=== PATIENT | male | born 1940 | race Caucasian/White ===

== ENCOUNTER 2019-04-01 09:21 | Inpatient (IN) | payer MEDICARE, MEDICAID ==
[2019-04-01] VITALS (14 sets, daily range): BP systolic 116–204; BP diastolic 62–103
[~2019-04-01] VITALS: Ht 162.6 cm; Wt 63.3 kg
--- NOTE | 2019-04-01 09:22 | NUR ---
Rec patient from [place] via flight crew. vss. Patient awake and alert. vss. No bradycardia, heart rate SR-ST with heart rate 103. BP stable. Hydralazine 20mg given by flight crew enroute for reported bp of greater than 200 systolic. Pt denying cp or sob at this time
[2019-04-01] MEDS: normal saline 1000ml 1,000 ML IV SCH ×2 (10:09→20:05)
[2019-04-01] MEDS ORDERED: atorvastatin 20mg tablet PO SCH (10:10)
[2019-04-01] MEDS ORDERED: heparin 10,000 units/1 ML INJ IV PRN (10:10)
[2019-04-01] MEDS ORDERED: heparin 10,000 units/1 ML INJ IV ONE (10:10)
[2019-04-01] MEDS ORDERED: aspirin 81mg tablet.DR PO SCH (10:10)
[2019-04-01] MEDS ORDERED: clopidogrel 75mg tablet PO SCH (10:10)
[2019-04-01] MEDS ORDERED: sodium phosphate inj. 15 MMOL in dextrose 5%-water 150 ML IV PRN (11:00)
[2019-04-01] MEDS ORDERED: magnesium Cl slow-release 64mg tablet PO PRN (11:00)
[2019-04-01] MEDS ORDERED: magnesium 2GM in 50ml NS 50 ML IV PRN (11:00)
[2019-04-01] MEDS ORDERED: Neutra Phos packet PO PRN (11:00)
[2019-04-01] MEDS ORDERED: ipratropium/albuterol 3ml nebule NEB PRN (11:00)
[2019-04-01] MEDS ORDERED: sodium phosphate inj. 30 MMOL in dextrose 5%-water 250 ML IV PRN (11:00)
[2019-04-01] MEDS ORDERED: magnesium 4gm in 100ml NS 100 ML IV PRN (11:00)
[2019-04-01] MEDS ORDERED: acetaminophen 325mg tablet PO PRN (11:00)
[2019-04-01] MEDS ORDERED: potassium Cl 20 mEq SR tablet PO PRN (11:00)
--- NOTE | 2019-04-01 12:00 | NUR ---
Heparin gtt ordered per Dr Aguilar/ Fariha Farfan. Labs being drawn now.
[2019-04-01] MEDS ORDERED: FURO-149 PO (12:10)
[2019-04-01] MEDS ORDERED: NITR0.4T51 SL (12:10)
[2019-04-01] MEDS ORDERED: CLOP75TA35 PO (12:10)
[2019-04-01] MEDS ORDERED: HYDR100T27 PO (12:10)
[2019-04-01] MEDS ORDERED: ATOR20TA PO (12:10)
[2019-04-01] MEDS ORDERED: ISOS120T13 PO ×2 (12:10→15:02)
[2019-04-01] MEDS ORDERED: CLON-529 PO (12:10)
[2019-04-01] MEDS ORDERED: ASPI-1265 PO (12:10)
[2019-04-01] MEDS ORDERED: POTA20PA40 PO (12:10)
[2019-04-01 13:03] LABS: BASOPHILS % (AUTO) 0.4 % (0-1); EOSINOPHILS % (AUTO) 0.2 % (0-6); HEMATOCRIT 45.1 % (42.0-52.0); HEMOGLOBIN 14.9 g/dl (14.0-17.9); LYMPHOCYTES # (AUTO) 0.7 X10'3 (1.1-4.8); LYMPHOCYTES % (AUTO) 5.9 % (21-51); MEAN CORPUSCULAR HEMOGLOBIN 29.5 PG (27.0-31.0); MEAN CORPUSCULAR HGB CONC 33.1 g/dL (33.0-36.5); MEAN CORPUSCULAR VOLUME 89.2 FL (78-98); MEAN PLATELET VOLUME 9.6 FL (7.4-10.4); MONOCYTES # (AUTO) 1.1 X10'3 (0-0.9); MONOCYTES % (AUTO) 8.4 % (2-12); NEUTROPHILS # (AUTO) 10.8 X10'3 (1.8-7.7); NEUTROPHILS % (AUTO) 85.1 % (42-75); PLATELET COUNT 274 X10'3 (140-440); RED BLOOD COUNT 5.06 X10'6 (4.70-6.10); RED CELL DISTRIBUTION WIDTH 14.9 % (11.5-14.5); WHITE BLOOD COUNT 12.7 X10'3 (4.5-11.0)
[2019-04-01 13:17] LABS: PARTIAL THROMBOPLASTIN TIME 50 SECONDS (22-32)
[2019-04-01 13:31] LABS: CLARITY,URINE CLOUDY (Clear); COLOR,URINE YELLOW (Yellow); GLUCOSE, URINE NEGATIVE (Neg); KETONES,URINE NEGATIVE (Neg); LEUKOCYTE ESTERASE ,URINE MODERATE (Neg); NITRITES, URINE NEGATIVE (Neg); OCCULT BLOOD,URINE MODERATE (Neg); PROTEIN,URINE 30 mg/dl (Neg); UROBILINOGEN,URINE 0.2 E.U/dL (0.2-1.0)
[2019-04-01 13:34] LABS: ALANINE AMINOTRANSFERASE 13 U/L (12-78); ALBUMIN 4.3 G/DL (3.4-5.0); ALBUMIN/GLOBULIN RATIO 0.9 (1.1-1.5); ALKALINE PHOSPHATASE 82 IU/L (46-116); ANION GAP 14 (8-16); ASPARTATE AMINO TRANSFERASE 26 U/L (10-37); BILIRUBIN,TOTAL 0.6 MG/DL (0.1-1.0); BLOOD UREA NITROGEN 40 MG/DL (7-18); CALCIUM 9.2 MG/DL (8.5-10.1); CHLORIDE 103 MMOL/L (99-107); CREATININE 1.74 MG/DL (0.60-1.10); GLUCOSE 112 MG/DL (70-104); MAGNESIUM 2.5 MG/DL (1.5-2.4); PHOSPHORUS 2.9 MG/DL (2.3-4.5); POTASSIUM 4.1 MMOL/L (3.5-5.1); SODIUM 143 MMOL/L (135-145); TOTAL CARBON DIOXIDE 25.6 MMOL/L (24-32); TOTAL PROTEIN 9.1 G/DL (6.4-8.2); eGFR 38 ML/MIN
[2019-04-01 13:37] LABS: UA COLLECTION TYPE FOLEY CATH
[2019-04-01 13:39] LABS: BACTERIA,URINE 2+ /HPF (Neg)
[2019-04-01 13:40] LABS: FINE GRANULAR CAST 0-3 /LPF (NEGATIVE); RENAL CELLS, URINE FEW /HPF; WBC CLUMPS,URINE MANY /HPF (NEGATIVE)
[2019-04-01 13:41] LABS: CELLULAR CAST 0-4 /LPF (NEGATIVE); COARSE GRANULAR CAST 0-3 /LPF (NEGATIVE); RBC,URINE 20-50 /HPF (0-2); SQUAMOUS EPITHELIAL CELL,UR FEW /LPF (FEW)
[2019-04-01 13:43] LABS: WBC,URINE TNTC /HPF (0-4)
[2019-04-01] MEDS ORDERED: nitroGLYCERIN 0.4mg SUBLingual tab SL PRN (15:00)
[2019-04-01] MEDS: heparin 25,000 UNIT/250ml bag 250 ML IV SCH ×2 (15:41→20:40)
[2019-04-01] MEDS: hydrALAZINE 25 MG tablet PO SCH (15:41)
[2019-04-01] MEDS: acetaminophen 325mg tablet PO PRN (17:16)
--- NOTE | 2019-04-01 18:25 | NUR ---
Patient in room ICU 2046. I have received report from Chana STELE and had the opportunity to ask questions and assume patient care. Patient sitting in bed, alert/oriented x4 and in no apparent distress. Vitals WNL at this time. Will continue to monitor patient.
[2019-04-01] MEDS: ondansetron/PF 4mg/2ml inj IV PRN (18:56)
--- NOTE | 2019-04-01 19:50 | NUR ---
Problems reprioritized. Patient report given, questions answered & plan of care reviewed with Andrea STEEL. Patient left floor via hospital bed in stable condition, alert/oriented x4, with all belongings and chart.
[2019-04-01] MEDS: docusate sod 100mg capsule PO SCH (20:00)
[2019-04-01] MEDS: hydrALAZINE 20mg/ml inj. IV PRN (21:16)
[2019-04-01] MEDS ORDERED: nitroGLYCERIN-Tridil 50MG/D5W 250 ML IV SCH (22:20)
[2019-04-02] VITALS (26 sets, daily range): BP systolic 139–232; BP diastolic 79–116
[2019-04-02] MEDS: hydrALAZINE 25 MG tablet PO SCH ×3 (00:06→17:50)
[2019-04-02] MEDS ORDERED: mag hydrox/Alum hydrox/simeth 30ml oral suspension PO ONE (00:25)
[2019-04-02] MEDS: ondansetron/PF 4mg/2ml inj IV PRN ×2 (02:19→08:21)
[2019-04-02 03:27] LABS: BASOPHILS # (AUTO) 0.1 X10'3 (0-0.2); EOSINOPHILS % (AUTO) 0.1 % (0-6); HEMOGLOBIN 14.7 g/dl (14.0-17.9); MEAN CORPUSCULAR HEMOGLOBIN 29.8 PG (27.0-31.0)
[2019-04-02 03:28] LABS: BASOPHILS % (AUTO) 0.9 % (0-1); HEMATOCRIT 43.6 % (42.0-52.0); LYMPHOCYTES # (AUTO) 0.9 X10'3 (1.1-4.8); LYMPHOCYTES % (AUTO) 5.4 % (21-51); MEAN CORPUSCULAR HGB CONC 33.7 g/dL (33.0-36.5); MEAN CORPUSCULAR VOLUME 88.4 FL (78-98); MEAN PLATELET VOLUME 9.4 FL (7.4-10.4); MONOCYTES % (AUTO) 6.2 % (2-12); NEUTROPHILS # (AUTO) 13.9 X10'3 (1.8-7.7); NEUTROPHILS % (AUTO) 87.4 % (42-75); RED BLOOD COUNT 4.93 X10'6 (4.70-6.10); RED CELL DISTRIBUTION WIDTH 15.1 % (11.5-14.5); WHITE BLOOD COUNT 15.9 X10'3 (4.5-11.0)
[2019-04-02 03:31] LABS: ALBUMIN 4.2 G/DL (3.4-5.0); ANION GAP 15 (8-16); BLOOD UREA NITROGEN 34 MG/DL (7-18); BUN/CREATININE RATIO 17.6 (5.4-32.0); CALCIUM 9.6 MG/DL (8.5-10.1); CHLORIDE 105 MMOL/L (99-107); CREATININE 1.93 MG/DL (0.60-1.10); GLUCOSE 161 MG/DL (70-104); MAGNESIUM 2.4 MG/DL (1.5-2.4); PHOSPHORUS 2.5 MG/DL (2.3-4.5); POTASSIUM 3.9 MMOL/L (3.5-5.1); SODIUM 144 MMOL/L (135-145); TOTAL CARBON DIOXIDE 24.4 MMOL/L (24-32); eGFR 34 ML/MIN
[2019-04-02 04:05] LABS: PLATELET COUNT 231 X10'3 (140-440)
[2019-04-02] MEDS: heparin 25,000 UNIT/250ml bag 250 ML IV SCH (04:19)
--- NOTE | 2019-04-02 05:05 | NUR ---
Rapid response was called due to patient's SBP being in 200's and Hear rate over 150's. ICU nurse came and evaluated the patient. Patient start on Nitroglycerin drip at rate of 3ml/hr (10mcg).
--- NOTE | 2019-04-02 05:09 | NUR ---
Called Adams-PIE MAKER for patient's SBP being over 180's. Ordered hydralazine 10mg IV Q6hr PRN for SBP>185.
[2019-04-02] MEDS: normal saline 1000ml 1,000 ML IV SCH (06:05)
--- NOTE | 2019-04-02 07:00 | NUR ---
pager ID: [phone] Message: [phone]- Jose Martin Evans. BP 192/99. HR 130's. Temp 100.8 AX. Vomiting all night. UA (+) poss septic? BC drawn. says he is going to . rapid response last night. on nitro/hep GTT. needs to go back to ICU please. ACCE- Sruthi Charge Nurse ext. [phone]
[2019-04-02] MEDS ORDERED: furosemide 20 MG/2 ML vial IV ONE (08:00)
[2019-04-02] MEDS ORDERED: isosorbide mononitrate 30mg tab.SR.24H PO SCH (08:00)
[2019-04-02] MEDS ORDERED: ceFAZolin 1000mg inj ONE (08:01)
[2019-04-02] MEDS ORDERED: heparin 10,000 units/1 ML INJ ONE (08:01)
[2019-04-02] MEDS: aspirin 325mg tablet PO SCH (08:27)
[2019-04-02] MEDS: clopidogrel 75mg tablet PO SCH (08:28)
[2019-04-02] MEDS: pantoprazole 40mg Tablet.DR PO SCH (08:28)
[2019-04-02] MEDS: docusate sod 100mg capsule PO SCH ×2 (08:28→20:22)
[2019-04-02] MEDS: atorvastatin 20mg tablet PO SCH (08:28)
[2019-04-02] MEDS: CefTRIAXone/D5W-Rocephin 1gm 50 ML IV SCH (08:39)
--- NOTE | 2019-04-02 09:00 | NUR ---
Attempted to start extended piv, pt became aggitated forced needle out of arm and attempted to strike me. extraction machine operator Sruthi notified line will not be placed. JAZMYN STEEL
--- NOTE | 2019-04-02 09:21 | NUR ---
PAGER ID: [phone] MESSAGE: [phone]- NATALIIA ORELLANA.Refusing EXT PIV. Need for Nitro/Heparin/NS. Only have 1 working PIV. BP 189/93 still. HR remains 130. Says he "wants to be left alone, wants to go home, wants to ." Can you please discuss code status? Sruthi- Ext [phone] ([phone] character message out of a maximum of [phone])
[2019-04-02] MEDS ORDERED: traMADol 50MG tablet PO PRN (10:45)
[2019-04-02] MEDS ORDERED: dextrose 50%-water 50ml dispensing syringe IV PRN (10:50)
[2019-04-02] MEDS ORDERED: haloperidol lactate 5mg/ml inj IM PRN (10:50)
[2019-04-02] MEDS ORDERED: thiamine 100mg/ml 2ml inj. IV ONE (10:50)
[2019-04-02] MEDS ORDERED: haloperidol 5mg tablet PO PRN (10:50)
[2019-04-02] MEDS ORDERED: labetalol 20mg/4ml (5mg/ml) syringe IV ONE (11:20)
[2019-04-02] MEDS: LORazepam 2 mg/ml vial IV PRN ×2 (11:23→22:14)
[2019-04-02] MEDS ORDERED: pantoprazole 40 MG vial IV ONE (11:45)
[2019-04-02] MEDS ORDERED: cloNIDine 0.1 mg tablet PO SCH ×3 (11:45→21:00)
[2019-04-02] MEDS ORDERED: metoclopramide 5 mg/ml inj IV PRN (11:45)
[2019-04-02 12:25] LABS: HEMATOCRIT 44.1 % (42.0-52.0); HEMOGLOBIN 14.6 g/dl (14.0-17.9); MEAN CORPUSCULAR HEMOGLOBIN 29.5 PG (27.0-31.0); MEAN CORPUSCULAR VOLUME 89.2 FL (78-98); MEAN PLATELET VOLUME 9.1 FL (7.4-10.4); PLATELET COUNT 281 X10'3 (140-440); RED BLOOD COUNT 4.94 X10'6 (4.70-6.10); RED CELL DISTRIBUTION WIDTH 14.9 % (11.5-14.5); WHITE BLOOD COUNT 13.8 X10'3 (4.5-11.0)
--- NOTE | 2019-04-02 16:31 | NUR ---
page to PICC nurse: can you try to get IV access on the pt. in rm 313 again please? He currently has none. Thank you. DAMIÁN Espinosa
[2019-04-02] MEDS ORDERED: LORazepam 1 MG tablet PO ONE (16:40)
--- NOTE | 2019-04-02 16:48 | NUR ---
promotional table spacer promotional table spacer Page Sent PAGER ID: [phone] MESSAGE: Atul ORELLANANATALIIA. No PIV access, he pulled it out. Climbing over bed rails. Confused. Can I get a sitter order please? No piv access.Unable to obtain access. Ativan po per protocol doesn't start until tomorrow. Sruthi STEEL ext [phone]
[2019-04-02] MEDS ORDERED: ziprasidone IM 20mg inj **IM only IM ONE (17:05)
--- NOTE | 2019-04-02 18:15 | NUR ---
Problems reprioritized. Patient report given, questions answered & plan of care reviewed with DAMIÁN Mendez.
[2019-04-02 19:43] LABS: D-DIMER 1.48 MG/L FEU (0-0.50)
--- NOTE | 2019-04-02 19:45 | NUR ---
Student documentation: I have reviewed and agree with all interventions, assessments performed and documented by BUNNY Dawson.
[2019-04-02 19:46] LABS: CREATINE KINASE 532 U/L (39-308)
[2019-04-02] MEDS: lactobacillus rhamnosus 10,000 MMU CELLS/CAPSULE PO SCH (20:22)
--- NOTE | 2019-04-02 22:47 | NUR ---
Called Jimy and informed him regarding the patient's becoming bradycardiac at low 30's. He acknowledged it, but no new orders at this time.
--- NOTE | 2019-04-02 23:36 | NUR ---
Rapid response was called around 0 and CICU charge nurse Julienne came and evaluated the patient regarding the transient bradycardia. Called Rell. He acknowledged the issue. No new orders were given at this time.
[2019-04-03] VITALS (18 sets, daily range): BP systolic 108–212; BP diastolic 62–110
[2019-04-03] MEDS: hydrALAZINE 20mg/ml inj. IV PRN ×2 (00:22→17:10)
--- NOTE | 2019-04-03 00:51 | NUR ---
Called pharmacy and reminded them regarding the misspelling of lorazepm, which should be corrected as lorazepam. Corrected the Lorazepam spelling.
[2019-04-03] MEDS ORDERED: ziprasidone IM 20mg inj **IM only IM ONE (00:55)
[2019-04-03] MEDS ORDERED: acetaminophen 650mg rectal suppository RC PRN (01:25)
[2019-04-03] MEDS ORDERED: hydrALAZINE 20mg/ml inj. IV ONE (04:05)
--- NOTE | 2019-04-03 04:05 | NUR ---
Called Dr. Patrick regarding the patient's SBP of 212 and DBP of 101 with HR of 109. He ordered hydralazine 10mg IV one dose. No other orders were given at this time.
[2019-04-03 05:31] LABS: BASOPHILS % (AUTO) 0.1 % (0-1); EOSINOPHILS % (AUTO) 0.1 % (0-6); HEMATOCRIT 43.1 % (42.0-52.0); HEMOGLOBIN 14.3 g/dl (14.0-17.9); LYMPHOCYTES # (AUTO) 0.8 X10'3 (1.1-4.8); LYMPHOCYTES % (AUTO) 5.4 % (21-51); MEAN CORPUSCULAR HEMOGLOBIN 29.4 PG (27.0-31.0); MEAN CORPUSCULAR HGB CONC 33.2 g/dL (33.0-36.5); MEAN CORPUSCULAR VOLUME 88.7 FL (78-98); MEAN PLATELET VOLUME 9.4 FL (7.4-10.4); MONOCYTES # (AUTO) 1.7 X10'3 (0-0.9); MONOCYTES % (AUTO) 11.5 % (2-12); NEUTROPHILS # (AUTO) 12.1 X10'3 (1.8-7.7); NEUTROPHILS % (AUTO) 82.9 % (42-75); PLATELET COUNT 251 X10'3 (140-440); RED BLOOD COUNT 4.86 X10'6 (4.70-6.10); RED CELL DISTRIBUTION WIDTH 14.9 % (11.5-14.5); WHITE BLOOD COUNT 14.6 X10'3 (4.5-11.0)
[2019-04-03 05:54] LABS: ANION GAP 16 (8-16); BLOOD UREA NITROGEN 33 MG/DL (7-18); BUN/CREATININE RATIO 16.8 (5.4-32.0); CHLORIDE 111 MMOL/L (99-107); CREATININE 1.97 MG/DL (0.60-1.10); GLUCOSE 149 MG/DL (70-104); MAGNESIUM 2.4 MG/DL (1.5-2.4); PHOSPHORUS 2.6 MG/DL (2.3-4.5); POTASSIUM 3.8 MMOL/L (3.5-5.1); SODIUM 153 MMOL/L (135-145); TOTAL CARBON DIOXIDE 26.4 MMOL/L (24-32); eGFR 33 ML/MIN
--- NOTE | 2019-04-03 06:10 | NUR ---
Patient in room MED 313. I have received report from DAMIÁN Mendez and had the opportunity to ask questions and assume patient care.
--- NOTE | 2019-04-03 06:15 | NUR ---
Troponin [address] Adams to inform. No new orders.
--- NOTE | 2019-04-03 06:31 | NUR ---
Gave report to Karena. Answered all the questions
[2019-04-03] MEDS: pantoprazole 40mg Tablet.DR PO SCH (07:30)
[2019-04-03] MEDS: cloNIDine 0.1 mg tablet PO SCH ×4 (07:50→22:00)
[2019-04-03] MEDS: lactobacillus rhamnosus 10,000 MMU CELLS/CAPSULE PO SCH ×2 (08:00→22:01)
[2019-04-03] MEDS: docusate sod 100mg capsule PO SCH ×2 (08:00→22:00)
[2019-04-03] MEDS ORDERED: metoprolol succinate 25mg (24-HOUR) SR. Tablet PO SCH (08:00)
[2019-04-03] MEDS: clopidogrel 75mg tablet PO SCH ×2 (08:00→16:36)
[2019-04-03] MEDS: atorvastatin 20mg tablet PO SCH (08:00)
--- NOTE | 2019-04-03 08:15 | NUR ---
SPOKE WITH DR. LAKE, DISCUSSED BLOOD PRESSURES BEING ELEVATED PREVIOUSLY, BUT CURRENTLY BLOOD PRESSURE IS 124/72. HR 110s. INSTRUCTED BY DR. LAKE TO DC TOPROL AND HOLD OFF ON PATIENT'S PO MEDS AND CONTINUE TO MONITOR BLOOD PRESSURE AND HR. WILL NOTIFY MD IF A CHANGE OCCURS.
[2019-04-03] MEDS: CefTRIAXone/D5W-Rocephin 1gm 50 ML IV SCH (08:25)
[2019-04-03] MEDS: aspirin 325mg tablet PO SCH (08:30)
[2019-04-03] MEDS ORDERED: furosemide 20 MG/2 ML vial IV ONE (09:45)
[2019-04-03] MEDS: hydrALAZINE 25 MG tablet PO SCH ×4 (10:07→21:59)
--- NOTE | 2019-04-03 12:46 | NUR ---
Removed mittens Patient cooperative, eating soup, and drinking juice. Sitter at bedside.
--- NOTE | 2019-04-03 15:43 | NUR ---
Paged Emily about rhythm change: "RM 313 Jose Martin Evans. FYI patient rhythm changed to bigeminy/trigeminy. HR 119 BP 164/79. UO from Lasix 585mls. Thank you Morenita [phone]."
--- NOTE | 2019-04-03 17:21 | NUR ---
Dr. Diaz and Dr. Aguilar visited pt by [facility], BP has been consistently elevated, 185/90. Gave scheduled clonidine 0.2 mg, gave hydralazine PRN. Frequency of clonidine has changed from Q8H to Q6H
[2019-04-03] MEDS: morphine 2 MG/ML inj. syringe IV PRN ×2 (17:24→22:56)
--- NOTE | 2019-04-03 18:05 | NUR ---
Problems reprioritized. Patient report given, questions answered & plan of care reviewed with DAMIÁN Nova.
--- NOTE | 2019-04-03 18:42 | NUR ---
Patient in room MED 313. I have received report from Rolando STEEL and had the opportunity to ask questions and assume patient care. bedside report. no distress noted. fall precautions implemented and maintained.
[2019-04-03] MEDS ORDERED: cloNIDine 0.1 mg tablet PO SCH (20:00)
[2019-04-03] MEDS: ondansetron/PF 4mg/2ml inj IV PRN (22:56)
[2019-04-04] MEDS ORDERED: hyDRALAzine 10mg tablet PO SCH
[2019-04-04 02:14] VITALS: BP 117/69
[2019-04-04] MEDS: hydrALAZINE 25 MG tablet PO SCH ×4 (02:18→20:31)
[2019-04-04] MEDS: cloNIDine 0.1 mg tablet PO SCH ×4 (02:18→20:31)
[2019-04-04 03:00] LABS: BASOPHILS # (AUTO) 0.1 X10'3 (0-0.2); BASOPHILS % (AUTO) 0.5 % (0-1); EOSINOPHILS # (AUTO) 0.1 X10'3 (0-0.9); EOSINOPHILS % (AUTO) 0.8 % (0-6); HEMATOCRIT 41.5 % (42.0-52.0); HEMOGLOBIN 13.8 g/dl (14.0-17.9); LYMPHOCYTES # (AUTO) 1.1 X10'3 (1.1-4.8); LYMPHOCYTES % (AUTO) 9.1 % (21-51); MEAN CORPUSCULAR HEMOGLOBIN 29.4 PG (27.0-31.0); MEAN CORPUSCULAR HGB CONC 33.3 g/dL (33.0-36.5); MEAN CORPUSCULAR VOLUME 88.5 FL (78-98); MONOCYTES # (AUTO) 1.5 X10'3 (0-0.9); MONOCYTES % (AUTO) 12.6 % (2-12); NEUTROPHILS # (AUTO) 9.1 X10'3 (1.8-7.7); PLATELET COUNT 223 X10'3 (140-440); RED BLOOD COUNT 4.69 X10'6 (4.70-6.10); WHITE BLOOD COUNT 11.8 X10'3 (4.5-11.0)
[2019-04-04 03:14] LABS: ALBUMIN 3.7 G/DL (3.4-5.0); ANION GAP 10 (8-16); BLOOD UREA NITROGEN 32 MG/DL (7-18); BUN/CREATININE RATIO 17.7 (5.4-32.0); CALCIUM 9.4 MG/DL (8.5-10.1); CHLORIDE 106 MMOL/L (99-107); CREATININE 1.81 MG/DL (0.60-1.10); GLUCOSE 130 MG/DL (70-104); MAGNESIUM 2.3 MG/DL (1.5-2.4); POTASSIUM 3.3 MMOL/L (3.5-5.1); SODIUM 145 MMOL/L (135-145); TOTAL CARBON DIOXIDE 29.3 MMOL/L (24-32); eGFR 37 ML/MIN
[2019-04-04] MEDS: ondansetron/PF 4mg/2ml inj IV PRN (05:35)
[2019-04-04] MEDS: potassium Cl 20 mEq SR tablet PO PRN ×3 (05:35→20:35)
[2019-04-04] MEDS: acetaminophen 325mg tablet PO PRN ×2 (05:35→22:32)
[2019-04-04 06:00] VITALS: BP 107/68
--- NOTE | 2019-04-04 06:15 | NUR ---
Patient in room MED 313. I have received report from DAMIÁN Nova and had the opportunity to ask questions and assume patient care.
--- NOTE | 2019-04-04 06:21 | NUR ---
Problems reprioritized. Patient report given,Saul STEEL questions answered & plan of care reviewed with .
[2019-04-04] MEDS: CefTRIAXone/D5W-Rocephin 1gm 50 ML IV SCH (07:58)
[2019-04-04] MEDS: pantoprazole 40mg Tablet.DR PO SCH (07:58)
[2019-04-04] MEDS: aspirin 325mg tablet PO SCH (08:01)
[2019-04-04] MEDS: lactobacillus rhamnosus 10,000 MMU CELLS/CAPSULE PO SCH ×2 (08:01→20:30)
[2019-04-04] MEDS: clopidogrel 75mg tablet PO SCH (08:01)
[2019-04-04] MEDS: atorvastatin 20mg tablet PO SCH (08:01)
[2019-04-04] MEDS: docusate sod 100mg capsule PO SCH ×2 (08:02→20:30)
[2019-04-04] MEDS ORDERED: furosemide 20MG tablet PO ONE (09:00)
[2019-04-04] MEDS ORDERED: LORazepam 2 mg/ml vial IV PRN (10:50)
[2019-04-04] MEDS ORDERED: LORazepam 1 MG tablet PO PRN (10:50)
[2019-04-04 11:00] VITALS: BP 145/61
[2019-04-04 15:00] VITALS: BP 102/46
[2019-04-04 18:00] VITALS: BP 112/61
--- NOTE | 2019-04-04 18:00 | NUR ---
Patient in room MED 313. I have received report from MARII STEEL and had the opportunity to ask questions and assume patient care.
--- NOTE | 2019-04-04 18:25 | NUR ---
Problems reprioritized. Patient report given, questions answered & plan of care reviewed with DAMIÁN Huggins.
[2019-04-04 22:00] VITALS: BP 141/62
[2019-04-05 02:00] VITALS: BP 120/54
[2019-04-05] MEDS: cloNIDine 0.1 mg tablet PO SCH ×2 (02:17→06:28)
[2019-04-05] MEDS: hydrALAZINE 25 MG tablet PO SCH ×2 (02:17→06:29)
--- NOTE | 2019-04-05 05:42 | NUR ---
PT REFUSED PLACEMENT OF NEW IV
--- NOTE | 2019-04-05 05:50 | NUR ---
Preceptee documentation: I have reviewed and agree with all interventions, assessments performed and documented by DAMIÁN Conner.
[2019-04-05 06:00] VITALS: BP 187/78
[2019-04-05 06:07] LABS: BASOPHILS % (AUTO) 0.6 % (0-1); EOSINOPHILS # (AUTO) 0.4 X10'3 (0-0.9); EOSINOPHILS % (AUTO) 4.9 % (0-6); HEMATOCRIT 35.5 % (42.0-52.0); HEMOGLOBIN 12.1 g/dl (14.0-17.9); LYMPHOCYTES % (AUTO) 14.1 % (21-51); MEAN CORPUSCULAR HGB CONC 34.1 g/dL (33.0-36.5); MEAN CORPUSCULAR VOLUME 88.1 FL (78-98); MEAN PLATELET VOLUME 9.6 FL (7.4-10.4); MONOCYTES % (AUTO) 14.2 % (2-12); NEUTROPHILS # (AUTO) 4.9 X10'3 (1.8-7.7); NEUTROPHILS % (AUTO) 66.2 % (42-75); PLATELET COUNT 169 X10'3 (140-440); RED BLOOD COUNT 4.04 X10'6 (4.70-6.10); RED CELL DISTRIBUTION WIDTH 14.4 % (11.5-14.5); WHITE BLOOD COUNT 7.4 X10'3 (4.5-11.0)
--- NOTE | 2019-04-05 06:29 | NUR ---
Problems reprioritized. Patient report given, questions answered & plan of care reviewed with CHAPO STEEL.
--- NOTE | 2019-04-05 06:45 | NUR ---
Patient in room MED 313. I have received report from DAMIÁN Huggins and had the opportunity to ask questions and assume patient care. Patient currently resting in bed, bed locked and low, call light in reach. Patient BP 187/78, patient does not have working IV and is refusing to have a new IV placed so could not give PRN hydralazine, patient requested to have his 8AM clonidine and hydralazine early, these were given, will reassess BP and inform
[2019-04-05 06:57] LABS: ANION GAP 11 (8-16); BLOOD UREA NITROGEN 42 MG/DL (7-18); BUN/CREATININE RATIO 18.4 (5.4-32.0); CALCIUM 8.8 MG/DL (8.5-10.1); CHLORIDE 103 MMOL/L (99-107); CREATININE 2.28 MG/DL (0.60-1.10); GLUCOSE 143 MG/DL (70-104); MAGNESIUM 2.1 MG/DL (1.5-2.4); PHOSPHORUS 3.4 MG/DL (2.3-4.5); SODIUM 140 MMOL/L (135-145); TOTAL CARBON DIOXIDE 26.5 MMOL/L (24-32); eGFR 28 ML/MIN
[2019-04-05] MEDS: docusate sod 100mg capsule PO SCH (07:40)
[2019-04-05] MEDS: aspirin 325mg tablet PO SCH (07:40)
[2019-04-05] MEDS: atorvastatin 20mg tablet PO SCH (07:40)
[2019-04-05] MEDS: lactobacillus rhamnosus 10,000 MMU CELLS/CAPSULE PO SCH (07:40)
[2019-04-05] MEDS: clopidogrel 75mg tablet PO SCH (07:40)
[2019-04-05] MEDS: pantoprazole 40mg Tablet.DR PO SCH (07:40)
[2019-04-05] MEDS: acetaminophen 325mg tablet PO PRN (07:52)
[2019-04-05] MEDS ORDERED: potassium Cl 20 mEq SR tablet PO SCH (08:00)
[2019-04-05] MEDS ORDERED: furosemide 20MG tablet PO SCH (08:00)
--- NOTE | 2019-04-05 09:48 | NUR ---
PAGER ID: [phone] MESSAGE: DAMIÁN Sainz, ext [phone], Evans, patient SBP was high at start of shift, gave PO clonidine and hydralazine early, BP currently stable, no working IV, patient refuses to have new IV. Says he wants to go home.
--- NOTE | 2019-04-05 11:04 | NUR ---
IV removed from left thumb, catheter tip intact, hemostasis achieved.
--- NOTE | 2019-04-05 11:32 | NUR ---
Received orders for patient discharge, ride arranged with [employer] pump operator time, they want pt in lobby ready to go. IV removed, monitors removed, VSS at time of discharge, patient medication retrieved from safe and given to patient. Patient instructed to schedule follow up with his tapeman within 1 week, patient stated he will be seeing him SHENG. Patient taken down to lobby to wait for transport.
[2019-04-06] MEDS ORDERED: LORazepam 2 mg/ml vial IV PRN (10:50)
[2019-04-06] MEDS ORDERED: LORazepam 1 MG tablet PO PRN (10:50)
== END 2019-04-05 12:00 | disposition home or self-care (01) | DRG 280 ==
LOC: ICU 2S 09:22 → MED 3N 20:08
PROVIDERS: ADMIT Internal Medicine Critical Care Medicine; ATTEND Internal Medicine
DX: I21.4 Non-ST elevation (NSTEMI) myocardial infarction (principal); G92 Toxic encephalopathy; I50.43 Acute on chronic combined systolic (congestive) and diastolic (congestive) heart failure; I13.0 Hypertensive heart and chronic kidney disease with heart failure and stage 1 through stage 4 chronic kidney disease, or unspecified chronic kidney disease; N17.9 Acute kidney failure, unspecified; E87.2 Acidosis; N39.0 Urinary tract infection, site not specified; N18.3 Chronic kidney disease, stage 3 (moderate); D64.9 Anemia, unspecified; A08.4 Viral intestinal infection, unspecified; E78.5 Hyperlipidemia, unspecified; F32.9 Major depressive disorder, single episode, unspecified; I65.29 Occlusion and stenosis of unspecified carotid artery; R00.0 Tachycardia, unspecified; R00.1 Bradycardia, unspecified; E86.0 Dehydration; T42.4X5A Adverse effect of benzodiazepines, initial encounter; G89.29 Other chronic pain; H54.62 Unqualified visual loss, left eye, normal vision right eye; I25.10 Atherosclerotic heart disease of native coronary artery without angina pectoris; J44.9 Chronic obstructive pulmonary disease, unspecified; K21.9 Gastro-esophageal reflux disease without esophagitis; Z79.02 Long term (current) use of antithrombotics/antiplatelets; Z79.899 Other long term (current) drug therapy; I25.2 Old myocardial infarction; Z86.73 Personal history of transient ischemic attack (TIA), and cerebral infarction without residual deficits; Z87.891 Personal history of nicotine dependence; Z95.1 Presence of aortocoronary bypass graft; Z95.5 Presence of coronary angioplasty implant and graft; Z88.5 Allergy status to narcotic agent; Z88.8 Allergy status to other drugs, medicaments and biological substances; Z88.0 Allergy status to penicillin; Y92.89 Other specified places as the place of occurrence of the external cause
CPT/HCPCS: 36415; 71045; 74176; 76937; 80048; 80053; 81001; 82550; 83605; 83735; 83880; 84100; 84132; 84145; 84443; 84484; 85025; 85027; 85379; 85610; 85730; 87040; 87081; 87088; 87502; 87503; 93005; 93306; 94760; 97161; 97530; C9113; G0378; J0360; J0690; J0696; J1644; J1940; J2060; J2270; J2405; J2765; J3411; J3486; J3490; J7030